=== PATIENT | male | born 1985 | race Caucasian/White ===

== ENCOUNTER → 2021-10-30 | Outpatient (CLI) | payer MEDICAID | LOC: M OUTALCOH 07:48 | PROVIDERS: ATTEND Psychiatry & Neurology Psychiatry | DX: Z03.89 Encounter for observation for other suspected diseases and conditions ruled out (principal) ==

== ENCOUNTER 2021-11-27 14:00 | Outpatient (RCR) | payer SELFPAY | END 2021-11-29 | LOC: M OUTALCOH 14:00 | PROVIDERS: ATTEND Psychiatry & Neurology Psychiatry | DX: F10.20 Alcohol dependence, uncomplicated (principal); F12.10 Cannabis abuse, uncomplicated; F17.200 Nicotine dependence, unspecified, uncomplicated ==

== ENCOUNTER → 2021-12-30 | Outpatient (RCR) | payer SELFPAY | LOC: M OUTALCOH 12-04 13:57 | PROVIDERS: ATTEND Psychiatry & Neurology Psychiatry | DX: F10.20 Alcohol dependence, uncomplicated (principal); F12.10 Cannabis abuse, uncomplicated; F17.200 Nicotine dependence, unspecified, uncomplicated ==

== ENCOUNTER → 2022-01-29 | Outpatient (RCR) | payer SELFPAY | LOC: M OUTALCOH 01-07 15:27 | PROVIDERS: ATTEND Psychiatry & Neurology Psychiatry | DX: F10.20 Alcohol dependence, uncomplicated (principal); F12.10 Cannabis abuse, uncomplicated; F17.200 Nicotine dependence, unspecified, uncomplicated ==

== ENCOUNTER 2022-02-26 08:49 | Outpatient (RCR) | payer SELFPAY | END 2022-03-01 | LOC: M OUTALCOH 08:49 | PROVIDERS: ATTEND Psychiatry & Neurology Psychiatry | DX: F10.20 Alcohol dependence, uncomplicated (principal); F12.10 Cannabis abuse, uncomplicated; F17.200 Nicotine dependence, unspecified, uncomplicated ==

== ENCOUNTER 2022-03-26 09:49 | Outpatient (RCR) | payer SELFPAY | END 2022-04-01 | LOC: M OUTALCOH 09:49 | PROVIDERS: ATTEND Psychiatry & Neurology Psychiatry | DX: F10.20 Alcohol dependence, uncomplicated (principal); F12.10 Cannabis abuse, uncomplicated; F17.200 Nicotine dependence, unspecified, uncomplicated ==

== ENCOUNTER 2022-04-23 10:00 | Outpatient (RCR) | payer OTHER | END 2022-05-01 | LOC: M OUTALCOH 10:00 | PROVIDERS: ATTEND Psychiatry & Neurology Psychiatry | DX: F10.20 Alcohol dependence, uncomplicated (principal); F12.10 Cannabis abuse, uncomplicated; F17.200 Nicotine dependence, unspecified, uncomplicated ==

== ENCOUNTER 2024-11-13 09:37 | Inpatient (IN) | payer MEDICAID, OTHER, SELFPAY ==
[2024-11-13] VITALS (10 sets, daily range): BP systolic 112–160; BP diastolic 59–80; TEMP 97–102.3; O2SAT 96–99
[~2024-11-13] VITALS: Ht 172.7 cm; Wt 62.5 kg
[2024-11-13] MEDS ORDERED: CIPR500T39 PO (09:49)
[2024-11-13 10:09] LABS: KETONE, URINE AUTO RFX NEGATIVE (NEGATIVE); MUCUS, URINE RFX SMALL (NEGATIVE); NITRITE, URINE AUTO RFX NEGATIVE (NEGATIVE); RBC, URINE AUTO RFX 3 /HPF (0-3); SQUAM EPITHELIAL CELL UR AURFX 0 /HPF (0-6)
[2024-11-13 10:10] LABS: LEUKOCYTE ESTERASE UR AUTO RFX 2+ (NEGATIVE); WBC, URINE AUTO RFX 145 /HPF (0-3)
[2024-11-13 10:41] LABS: BASO # 0.1 10^3/uL (0.0-0.2); BASO % 0.2 % (0.0-1.0); EOS # 0.1 10^3/uL (0.0-0.5); EOS % 0.2 % (0.0-3.0); HEMATOCRIT 27.1 % (42.0-52.0); HEMOGLOBIN 8.8 g/dl (13.5-17.5); LYMPH # 1.5 10^3/uL (1.5-5.0); LYMPH % 5.2 % (24.0-44.0); MEAN CORPUSCULAR HEMOGLOBIN 29.2 pg (27.0-33.0); MEAN CORPUSCULAR HGB CONC 32.5 g/dl (32.0-36.5); MONO # 1.7 10^3/uL (0.0-0.8); MONO % 5.8 % (2.0-8.0); NEUTROPHILS # 25.2 10^3/uL (1.5-8.5); NEUTROPHILS % 87.8 % (36.0-66.0); PLATELET COUNT, AUTOMATED 696 10^3/uL (150-450); RED BLOOD COUNT 3.01 10^6/uL (4.30-6.10); WHITE BLOOD COUNT 28.7 10^3/uL (4.0-10.0)
[2024-11-13 11:03] LABS: BLOOD UREA NITROGEN 16 MG/DL (9-23); CALCIUM LEVEL 8.1 MG/DL (8.5-10.1); CARBON DIOXIDE LEVEL 28 MMOL/L (20-31); CHLORIDE LEVEL 97 MMOL/L (98-107); CREATININE FOR GFR 1.48 MG/DL (0.70-1.30); GLOMERULAR FILTRATION RATE 61.7 (>60); GLUCOSE, FASTING 117 MG/DL (60-100); POTASSIUM SERUM 4.4 MMOL/L (3.5-5.1); SODIUM LEVEL 132 MMOL/L (136-145)
[2024-11-13] MEDS: NS (Normal Saline) 0.9% 1,000 ML IV ONE ×2 (12:40→12:49)
[2024-11-13] MEDS: cefTRIAXone SOD 2 GM in DEXTROSE 5% (D5W) ADV/MINI-BAG 50 ML IV ONE (12:54)
[2024-11-13] MEDS: KETOROLAC 30 MG/ML 1ML VIAL IV ONE (12:54)
[2024-11-13] MEDS ORDERED: MORPHINE 4 MG/ML 1ML VIAL IV PRN (14:15)
[2024-11-13] MEDS ORDERED: GLUCAGON INJ 1MG VIAL SC PRN (14:30)
[2024-11-13] MEDS ORDERED: GLUCOSE 4 GM CHEW PO PRN (14:30)
[2024-11-13] MEDS ORDERED: DEXTROSE 50% 50ML SYRINGE IV PRN (14:30)
[2024-11-13 14:45] LABS: LIPASE 18 U/L (12-53)
[2024-11-13 14:47] LABS: ALBUMIN 1.9 G/DL (3.2-5.2); ALKALINE PHOSPHATASE 55 U/L (40-129); ALT/SGPT 18 U/L (7.0-40); AST/SGOT 21 U/L (<34); BILIRUBIN,DIRECT 0.2 MG/DL (<0.4); BILIRUBIN,TOTAL 0.5 MG/DL (0.3-1.2); TOTAL PROTEIN 6.5 G/DL (5.7-8.2)
[2024-11-13] MEDS ORDERED: ONDANSETRON 4MG 2ML VIAL IV PRN ×2 (15:35→21:05)
[2024-11-13] MEDS: NS (Normal Saline) 0.9% 1,000 ML IV SCH (15:54)
[2024-11-13] MEDS: LIDOCAINE 1% MDV 20ML VIAL SC ONE (16:34)
[2024-11-13] MEDS ORDERED: HOME MED LIST COMPLETE! XX SCH (16:40)
[2024-11-13 17:50] LABS: INR 1.15
[2024-11-13] MEDS: PIPERACILLIN/TAZOBACTAM SOD 3.375 GM in DEXTROSE 5% (D5W) ADV/MINI-BAG 50 ML IV SCH (19:19)
[2024-11-13] MEDS ORDERED: LIDOCAINE 2% 100MG/5ML SDV (FOR ANES.) As Ordered ONE (20:15)
[2024-11-13] MEDS ORDERED: fentaNYL 100 MCG/2 ML INJECTION As Ordered ONE (20:15)
[2024-11-13] MEDS ORDERED: ONDANSETRON 4MG 2ML VIAL As Ordered ONE (20:15)
[2024-11-13] MEDS ORDERED: propofoL 200 MG/20 ML VIAL As Ordered ONE (20:15)
[2024-11-13] MEDS ORDERED: MIDAZOLAM INJ 2MG/2ML VIAL As Ordered ONE (20:15)
[2024-11-13] MEDS: NICOTINE 7 MG/24 HR TRANSDERMAL TD SCH (21:00)
[2024-11-13] MEDS ORDERED: MORPHINE 2 MG/ML 1ML VIAL IV PRN (21:05)
[2024-11-13] MEDS ORDERED: fentaNYL 100 MCG/2 ML INJECTION IV PRN (21:05)
[2024-11-13] MEDS ORDERED: oxyCODONE 5MG TAB PO PRN (21:05)
[2024-11-13] MEDS: oxyBUTYnin 5 MG TAB PO SCH (22:41)
[2024-11-13] MEDS: ACETAMINOPHEN 325 MG TAB PO PRN (23:22)
[2024-11-14] VITALS (11 sets, daily range): BP systolic 111–132; BP diastolic 67–81; TEMP 97.2–98.3; O2SAT 98–100
[2024-11-14 06:15] LABS: BASO # 0.1 10^3/uL (0.0-0.2); BASO % 0.2 % (0.0-1.0); HEMATOCRIT 28.1 % (42.0-52.0); HEMOGLOBIN 8.9 g/dl (13.5-17.5); LYMPH % 3.9 % (24.0-44.0); MEAN CORPUSCULAR HEMOGLOBIN 29.5 pg (27.0-33.0); MEAN CORPUSCULAR HGB CONC 31.7 g/dl (32.0-36.5); MONO # 0.5 10^3/uL (0.0-0.8); MONO % 1.9 % (2.0-8.0); NEUTROPHILS # 23.2 10^3/uL (1.5-8.5); NEUTROPHILS % 93.3 % (36.0-66.0); PLATELET COUNT, AUTOMATED 703 10^3/uL (150-450); RED BLOOD COUNT 3.02 10^6/uL (4.30-6.10); WHITE BLOOD COUNT 24.9 10^3/uL (4.0-10.0)
[2024-11-14] MEDS ORDERED: ISOVUE-370 76% 100ML VIAL As Ordered ONE (06:16)
[2024-11-14 06:38] LABS: BLOOD UREA NITROGEN 17 MG/DL (9-23); CALCIUM LEVEL 8.2 MG/DL (8.5-10.1); CARBON DIOXIDE LEVEL 27 MMOL/L (20-31); CHLORIDE LEVEL 98 MMOL/L (98-107); CREATININE FOR GFR 1.33 MG/DL (0.70-1.30); GLOMERULAR FILTRATION RATE 70.2 (>60); GLUCOSE, FASTING 189 MG/DL (60-100); POTASSIUM SERUM 4.2 MMOL/L (3.5-5.1); SODIUM LEVEL 135 MMOL/L (136-145)
[2024-11-14] MEDS: ISOVUE-300 61% 100ML VIAL IV SCH (11:00)
[2024-11-14] MEDS ORDERED: fentaNYL 100 MCG/2 ML INJECTION IV PRN (11:00)
[2024-11-14] MEDS ORDERED: MIDAZOLAM INJ 2MG/2ML VIAL IV PRN (11:00)
[2024-11-14] MEDS ORDERED: NS (Normal Saline) 0.9% 1,000 ML IV SCH (11:00)
[2024-11-14] MEDS: LIDOCAINE 1% MDV 20ML VIAL SC SCH (11:00)
[2024-11-14] MEDS: SODIUM CHLORIDE 0.9% 1000 ML XX SCH (11:00)
[2024-11-14] MEDS: ACETAMINOPHEN 325 MG TAB PO PRN (13:28)
[2024-11-14 14:31] LABS: HIV 1&2 SCREEN NEGATIVE (NEGATIVE)
[2024-11-14] MEDS: MORPHINE 2 MG/ML 1ML VIAL IV PRN (17:46)
[2024-11-15 03:38] VITALS: BP 119/79; TEMP 98.2; O2SAT 100
[2024-11-15 05:51] LABS: BASO % 0.3 % (0.0-1.0); EOS # 0.1 10^3/uL (0.0-0.5); EOS % 0.7 % (0.0-3.0); HEMATOCRIT 24.9 % (42.0-52.0); LYMPH # 2.2 10^3/uL (1.5-5.0); LYMPH % 14.2 % (24.0-44.0); MEAN CORPUSCULAR HGB CONC 32.1 g/dl (32.0-36.5); MEAN CORPUSCULAR VOLUME 90.2 fl (80.0-96.0); MONO # 0.6 10^3/uL (0.0-0.8); MONO % 4.2 % (2.0-8.0); NEUTROPHILS # 12.2 10^3/uL (1.5-8.5); PLATELET COUNT, AUTOMATED 673 10^3/uL (150-450); RED BLOOD COUNT 2.76 10^6/uL (4.30-6.10); WHITE BLOOD COUNT 15.3 10^3/uL (4.0-10.0)
[2024-11-15 06:18] LABS: CALCIUM LEVEL 7.4 MG/DL (8.5-10.1); CREATININE FOR GFR 1.36 MG/DL (0.70-1.30); GLOMERULAR FILTRATION RATE 68.3 (>60); POTASSIUM SERUM 4.1 MMOL/L (3.5-5.1)
[2024-11-15 07:35] VITALS: BP 137/65; TEMP 98; O2SAT 100
[2024-11-15 09:05] LABS: PROCALCITONIN 0.94 ng/ml
[2024-11-15 12:00] VITALS: BP 126/64; TEMP 97.6; O2SAT 96
[2024-11-15 16:00] VITALS: BP 118/58; TEMP 97.6; O2SAT 100
[2024-11-15] MEDS: SODIUM CHLORIDE 0.9% INJ 10 ML SYR XX SCH (17:20)
[2024-11-15 20:10] VITALS: BP 133/80; TEMP 99.1; O2SAT 99
[2024-11-16] VITALS (7 sets, daily range): BP systolic 126–143; BP diastolic 76–86; TEMP 97.4–99.4; O2SAT 99–100
[2024-11-16 06:19] LABS: BASO % 0.3 % (0.0-1.0); EOS # 0.2 10^3/uL (0.0-0.5); EOS % 1.9 % (0.0-3.0); HEMATOCRIT 26.3 % (42.0-52.0); HEMOGLOBIN 8.6 g/dl (13.5-17.5); LYMPH # 1.9 10^3/uL (1.5-5.0); LYMPH % 15.7 % (24.0-44.0); MEAN CORPUSCULAR HEMOGLOBIN 29.6 pg (27.0-33.0); MEAN CORPUSCULAR HGB CONC 32.7 g/dl (32.0-36.5); MEAN CORPUSCULAR VOLUME 90.4 fl (80.0-96.0); MONO # 0.7 10^3/uL (0.0-0.8); MONO % 5.7 % (2.0-8.0); NEUTROPHILS % 75.8 % (36.0-66.0); PLATELET COUNT, AUTOMATED 746 10^3/uL (150-450); RED BLOOD COUNT 2.91 10^6/uL (4.30-6.10); WHITE BLOOD COUNT 11.8 10^3/uL (4.0-10.0)
[2024-11-16 06:39] LABS: CREATININE FOR GFR 1.47 MG/DL (0.70-1.30); GLOMERULAR FILTRATION RATE 62.2 (>60); POTASSIUM SERUM 4.4 MMOL/L (3.5-5.1)
[2024-11-16 13:26] LABS: C REACTIVE PROTEIN QUANTITATIV 7.8 MG/DL (<1.0)
[2024-11-16 14:04] LABS: FERRITIN 276.5 NG/ML (10.5-307.3); FOLATE 9.92 NG/ML (>5.4)
[2024-11-16 14:29] LABS: PERCENT SATURATION 12.6 % (19.7-50.0)
[2024-11-16 18:58] LABS: HEPATITIS B SURFACE ANTIBODY POSITIVE (POSITIVE)
[2024-11-16 19:32] LABS: HEPATITIS C VIRUS ABY INDEX 0.07 INDEX (<0.8)
[2024-11-16 19:41] LABS: HEPATITIS B SURFACE ANTIGEN NEGATIVE (NEGATIVE)
[2024-11-17] VITALS (7 sets, daily range): BP systolic 135–153; BP diastolic 78–97; TEMP 97.6–98.7; O2SAT 98–100
[2024-11-17 04:16] LABS: BASO # 0.1 10^3/uL (0.0-0.2); BASO % 0.5 % (0.0-1.0); EOS # 0.4 10^3/uL (0.0-0.5); EOS % 2.9 % (0.0-3.0); HEMATOCRIT 26.2 % (42.0-52.0); HEMOGLOBIN 8.5 g/dl (13.5-17.5); MEAN CORPUSCULAR HEMOGLOBIN 29.7 pg (27.0-33.0); MEAN CORPUSCULAR HGB CONC 32.4 g/dl (32.0-36.5); MEAN CORPUSCULAR VOLUME 91.6 fl (80.0-96.0); MONO # 0.8 10^3/uL (0.0-0.8); MONO % 5.7 % (2.0-8.0); NEUTROPHILS % 75.4 % (36.0-66.0); PLATELET COUNT, AUTOMATED 786 10^3/uL (150-450); RED BLOOD COUNT 2.86 10^6/uL (4.30-6.10); WHITE BLOOD COUNT 13.2 10^3/uL (4.0-10.0)
[2024-11-17 04:40] LABS: CALCIUM LEVEL 7.9 MG/DL (8.5-10.1); CREATININE FOR GFR 1.41 MG/DL (0.70-1.30); GLOMERULAR FILTRATION RATE 65.4 (>60); POTASSIUM SERUM 4.2 MMOL/L (3.5-5.1)
[2024-11-17] MEDS: CETACAINE SPRAY 5GM As Ordered ONE (18:00)
[2024-11-18] VITALS (7 sets, daily range): BP systolic 138–158; BP diastolic 82–98; TEMP 97.5–98.2; O2SAT 98–100
[2024-11-18 05:52] LABS: BASO # 0.1 10^3/uL (0.0-0.2); BASO % 0.5 % (0.0-1.0); EOS # 0.5 10^3/uL (0.0-0.5); EOS % 3.7 % (0.0-3.0); HEMATOCRIT 25.2 % (42.0-52.0); HEMOGLOBIN 8.1 g/dl (13.5-17.5); LYMPH % 14.9 % (24.0-44.0); MEAN CORPUSCULAR HEMOGLOBIN 28.7 pg (27.0-33.0); MEAN CORPUSCULAR HGB CONC 32.1 g/dl (32.0-36.5); MEAN CORPUSCULAR VOLUME 89.4 fl (80.0-96.0); MONO # 0.6 10^3/uL (0.0-0.8); MONO % 4.4 % (2.0-8.0); NEUTROPHILS # 10.1 10^3/uL (1.5-8.5); NEUTROPHILS % 75.7 % (36.0-66.0); PLATELET COUNT, AUTOMATED 763 10^3/uL (150-450); RED BLOOD COUNT 2.82 10^6/uL (4.30-6.10); WHITE BLOOD COUNT 13.3 10^3/uL (4.0-10.0)
[2024-11-18 06:19] LABS: CALCIUM LEVEL 8.8 MG/DL (8.5-10.1); CREATININE FOR GFR 1.53 MG/DL (0.70-1.30); GLOMERULAR FILTRATION RATE 59.3 (>60); POTASSIUM SERUM 4.2 MMOL/L (3.5-5.1)
[2024-11-19 03:27] VITALS: BP 156/90; TEMP 98.9; O2SAT 99
[2024-11-19 06:04] LABS: BASO # 0.1 10^3/uL (0.0-0.2); BASO % 0.9 % (0.0-1.0); EOS # 0.5 10^3/uL (0.0-0.5); EOS % 4.7 % (0.0-3.0); HEMATOCRIT 25.8 % (42.0-52.0); HEMOGLOBIN 8.4 g/dl (13.5-17.5); LYMPH # 1.8 10^3/uL (1.5-5.0); LYMPH % 17.5 % (24.0-44.0); MEAN CORPUSCULAR HEMOGLOBIN 29.7 pg (27.0-33.0); MEAN CORPUSCULAR HGB CONC 32.6 g/dl (32.0-36.5); MEAN CORPUSCULAR VOLUME 91.2 fl (80.0-96.0); MONO # 0.6 10^3/uL (0.0-0.8); MONO % 5.8 % (2.0-8.0); NEUTROPHILS # 7.4 10^3/uL (1.5-8.5); NEUTROPHILS % 70.7 % (36.0-66.0); PLATELET COUNT, AUTOMATED 789 10^3/uL (150-450); RED BLOOD COUNT 2.83 10^6/uL (4.30-6.10); WHITE BLOOD COUNT 10.5 10^3/uL (4.0-10.0)
[2024-11-19 06:22] LABS: CALCIUM LEVEL 8.3 MG/DL (8.5-10.1); CREATININE FOR GFR 1.74 MG/DL (0.70-1.30); GLOMERULAR FILTRATION RATE 50.8 (>60); POTASSIUM SERUM 4.2 MMOL/L (3.5-5.1)
[2024-11-19 07:31] VITALS: BP 159/91; TEMP 97.5; O2SAT 97
[2024-11-19 12:04] VITALS: BP 147/80; TEMP 98.4; O2SAT 98
[2024-11-19 16:02] VITALS: BP 142/90; TEMP 98.5; O2SAT 99
[2024-11-19 19:04] VITALS: BP 133/76; TEMP 98; O2SAT 100
[2024-11-20 04:00] VITALS: BP 136/82; TEMP 99.9; O2SAT 98
[2024-11-20 05:37] LABS: BASO # 0.1 10^3/uL (0.0-0.2); BASO % 0.8 % (0.0-1.0); EOS # 0.5 10^3/uL (0.0-0.5); HEMATOCRIT 27.1 % (42.0-52.0); HEMOGLOBIN 8.8 g/dl (13.5-17.5); LYMPH # 2.1 10^3/uL (1.5-5.0); LYMPH % 19.1 % (24.0-44.0); MEAN CORPUSCULAR HGB CONC 32.5 g/dl (32.0-36.5); MEAN CORPUSCULAR VOLUME 92.5 fl (80.0-96.0); MONO # 0.6 10^3/uL (0.0-0.8); MONO % 5.5 % (2.0-8.0); NEUTROPHILS # 7.5 10^3/uL (1.5-8.5); NEUTROPHILS % 69.2 % (36.0-66.0); PLATELET COUNT, AUTOMATED 805 10^3/uL (150-450); RED BLOOD COUNT 2.93 10^6/uL (4.30-6.10); WHITE BLOOD COUNT 10.8 10^3/uL (4.0-10.0)
[2024-11-20 05:57] LABS: CALCIUM LEVEL 8.9 MG/DL (8.5-10.1); CREATININE FOR GFR 1.77 MG/DL (0.70-1.30); GLOMERULAR FILTRATION RATE 49.8 (>60); POTASSIUM SERUM 4.7 MMOL/L (3.5-5.1)
[2024-11-20 08:10] VITALS: BP 150/98; TEMP 99.9; O2SAT 98
[2024-11-20 11:01] LABS: C REACTIVE PROTEIN QUANTITATIV 2.02 MG/DL (<1.0)
[2024-11-20 11:13] LABS: PROCALCITONIN 0.19 ng/ml
[2024-11-20 11:44] VITALS: BP 150/98; TEMP 99.3; O2SAT 99
[2024-11-20 12:26] VITALS: BP 139/87; TEMP 97; O2SAT 100
[2024-11-20] MEDS: metroNIDAZOLE (FLAGYL) 500MG TABLET PO SCH (18:17)
[2024-11-20 20:29] VITALS: BP 152/81; TEMP 98; O2SAT 99
[2024-11-20] MEDS: LevoFLOXacin 750 MG TABLET PO SCH (21:49)
[2024-11-21 03:58] VITALS: BP 132/88; TEMP 97.4; O2SAT 100
[2024-11-21 05:53] LABS: HEMATOCRIT 26.4 % (42.0-52.0); HEMOGLOBIN 8.4 g/dl (13.5-17.5); MEAN CORPUSCULAR HEMOGLOBIN 29.2 pg (27.0-33.0); MEAN CORPUSCULAR HGB CONC 31.8 g/dl (32.0-36.5); MEAN CORPUSCULAR VOLUME 91.7 fl (80.0-96.0); PLATELET COUNT, AUTOMATED 753 10^3/uL (150-450); RED BLOOD COUNT 2.88 10^6/uL (4.30-6.10); WHITE BLOOD COUNT 8.6 10^3/uL (4.0-10.0)
[2024-11-21 06:19] LABS: ALBUMIN 2.3 G/DL (3.2-5.2); CALCIUM LEVEL 9.1 MG/DL (8.5-10.1); CREATININE FOR GFR 1.78 MG/DL (0.70-1.30); GLOMERULAR FILTRATION RATE 49.5 (>60); MAGNESIUM LEVEL 2.2 MG/DL (1.8-2.4); PHOSPHORUS LEVEL 4.7 MG/DL (2.5-4.9); POTASSIUM SERUM 4.5 MMOL/L (3.5-5.1)
[2024-11-21 07:27] VITALS: BP 139/81; TEMP 97.9; O2SAT 95
[2024-11-21] MEDS ORDERED: LEVO75TAB PO (07:27)
[2024-11-21] MEDS ORDERED: METR-265 PO (07:27)
[2024-11-21 07:35] LABS: ANISOCYTOSIS 1+; ATYPICAL LYMPH 2 % (0-5); EOSINOPHILS 3 % (0-3); LYMPHOCYTES 27 % (16-44); MONOCYTES 2 % (0-5); NEUTROPHILS 66 % (28-66)
[2024-11-21 07:36] LABS: PLATELET ESTIMATE INCREASED (NORMAL)
== END 2024-11-21 14:04 | disposition home or self-care (01) | DRG 710 ==
LOC: M ED 09:37 → M ED INP 09:38 → M ED 14:37 → OBSVTOIN 14:44 → M PCU 17:03
PROVIDERS: ADMIT Internal Medicine; ATTEND Internal Medicine
PROC: 0W9H30Z Drainage of Retroperitoneum with Drainage Device, Percutaneous Approach (ICD-10-PCS; 2024-11-13)
PROC: 0T9780Z Drainage of Left Ureter with Drainage Device, Via Natural or Artificial Opening Endoscopic (ICD-10-PCS; 2024-11-13)
PROC: 0T778DZ Dilation of Left Ureter with Intraluminal Device, Via Natural or Artificial Opening Endoscopic (ICD-10-PCS; principal; 2024-11-13 16:00)
PROC: 0W9J30Z Drainage of Pelvic Cavity with Drainage Device, Percutaneous Approach (ICD-10-PCS; 2024-11-14)
PROC: B246ZZZ Ultrasonography of Right and Left Heart (ICD-10-PCS; 2024-11-17)
DX: A41.9 Sepsis, unspecified organism (principal); N15.1 Renal and perinephric abscess; N17.9 Acute kidney failure, unspecified; K68.12 Psoas muscle abscess; D69.6 Thrombocytopenia, unspecified; E87.1 Hypo-osmolality and hyponatremia; N30.80 Other cystitis without hematuria; N32.1 Vesicointestinal fistula; N20.1 Calculus of ureter; F17.210 Nicotine dependence, cigarettes, uncomplicated; N13.9 Obstructive and reflux uropathy, unspecified; D64.9 Anemia, unspecified; N12 Tubulo-interstitial nephritis, not specified as acute or chronic; N18.2 Chronic kidney disease, stage 2 (mild); I34.0 Nonrheumatic mitral (valve) insufficiency

== ENCOUNTER → 2024-12-06 | Outpatient (REF) | payer MEDICAID, OTHER ==
[~2024-12-06] MED LIST: CIPR500T39 PO; LEVO75TAB PO; METR-265 PO
== END ==
LOC: M SMT 13:25
PROVIDERS: ATTEND Urology
DX: N30.80 Other cystitis without hematuria (principal)

== ENCOUNTER → 2024-12-18 | Outpatient (CLI) | payer OTHER ==
[2024-12-18 12:56] LABS: BASO # 0.1 10^3/uL (0.0-0.2); EOS # 0.6 10^3/uL (0.0-0.5); EOS % 6.6 % (0.0-3.0); HEMATOCRIT 33.2 % (42.0-52.0); HEMOGLOBIN 10.9 g/dl (13.5-17.5); LYMPH # 2.1 10^3/uL (1.5-5.0); LYMPH % 24.4 % (24.0-44.0); MEAN CORPUSCULAR HEMOGLOBIN 30.2 pg (27.0-33.0); MEAN CORPUSCULAR HGB CONC 32.8 g/dl (32.0-36.5); MONO # 0.9 10^3/uL (0.0-0.8); MONO % 10.7 % (2.0-8.0); NEUTROPHILS # 4.8 10^3/uL (1.5-8.5); NEUTROPHILS % 57.1 % (36.0-66.0); PLATELET COUNT, AUTOMATED 356 10^3/uL (150-450); RED BLOOD COUNT 3.61 10^6/uL (4.30-6.10); WHITE BLOOD COUNT 8.4 10^3/uL (4.0-10.0)
[2024-12-18 12:57] LABS: APPEARANCE, URINE CLOUDY (CLEAR); BACTERIA, URINE AUTO NEGATIVE (NEGATIVE); BILIRUBIN, URINE AUTO NEGATIVE (NEGATIVE); BLOOD, URINE BLOOD 2+ (NEGATIVE); CALCIUM OXALATE CRYSTALS SMALL; COLOR, URINE YELLOW (YELLOW); GLUCOSE, URINE (UA) AUTO NEGATIVE (NEGATIVE); KETONE, URINE AUTO NEGATIVE (NEGATIVE); LEUKOCYTE ESTERASE, URINE AUTO 3+ (NEGATIVE); NITRITE, URINE AUTO NEGATIVE (NEGATIVE); PROTEIN, URINE AUTO 1+ mg/dL (NEGATIVE); RBC, URINE AUTO 29 /HPF (0-3); SPECIFIC GRAVITY URINE AUTO 1.014 (1.002-1.035); SQUAMOUS EPITHELIAL CELL UR AU 0 /HPF (0-6); UROBILINOGEN, URINE AUTO 0.2 mg/dL (0.0-2.0); WBC, URINE AUTO TNTC /HPF (0-3)
[2024-12-18 12:59] LABS: C REACTIVE PROTEIN QUANTITATIV < 0.50 MG/DL (<1.0); INR 1.13; PROTHROMBIN TIME 14.8 SECONDS (12.5-14.5)
[2024-12-18 13:00] LABS: ALBUMIN 3.2 G/DL (3.2-5.2); ALKALINE PHOSPHATASE 33 U/L (40-129); ALT/SGPT 29 U/L (7.0-40); AST/SGOT 52 U/L (<34); BILIRUBIN,TOTAL 0.8 MG/DL (0.3-1.2); BLOOD UREA NITROGEN 18 MG/DL (9-23); CALCIUM LEVEL 9.5 MG/DL (8.5-10.1); CARBON DIOXIDE LEVEL 30 MMOL/L (20-31); CHLORIDE LEVEL 103 MMOL/L (98-107); CREATININE FOR GFR 1.83 MG/DL (0.70-1.30); GLOMERULAR FILTRATION RATE 47.8 (>60); GLUCOSE, FASTING 94 MG/DL (60-100); POTASSIUM SERUM 4.3 MMOL/L (3.5-5.1); SODIUM LEVEL 139 MMOL/L (136-145); TOTAL PROTEIN 6.6 G/DL (5.7-8.2)
[2024-12-18 13:10] LABS: ERYTHROCYTE SEDIMENTATION RATE 45 mm/hr (0-15)
== END ==
LOC: M PLALAB 10:10
PROVIDERS: ATTEND Internal Medicine Infectious Disease
DX: N15.1 Renal and perinephric abscess (principal)

== ENCOUNTER → 2024-12-20 | Outpatient (CLI) | payer OTHER ==
[~2024-12-20] MED LIST changes: +ISOVUE-370 76% 100ML VIAL As Ordered ONE
== END ==
LOC: M RAD 13:23
PROVIDERS: ATTEND Urology
DX: N20.2 Calculus of kidney with calculus of ureter (principal); N15.1 Renal and perinephric abscess; N28.1 Cyst of kidney, acquired
CPT/HCPCS: 74177; Q9967

== ENCOUNTER 2025-01-29 08:30 | Day surgery (SDC) | payer OTHER ==
[~2025-01-29] VITALS: Ht 172.7 cm; Wt 69.1 kg
[~2025-01-29 08:30] MED LIST changes: -ISOVUE-370 76% 100ML VIAL As Ordered ONE; +MULTTAB61 PO
[2025-01-29] MEDS ORDERED: LR 1,000 ML IV SCH (08:55)
[2025-01-29] MEDS ORDERED: MIDAZOLAM INJ 2 MG/2 ML VIAL As Ordered ONE (09:00)
[2025-01-29] MEDS ORDERED: fentaNYL 100 MCG/2 ML INJECTION As Ordered ONE (09:00)
[2025-01-29] MEDS ORDERED: propofoL 200 MG/20 ML VIAL As Ordered ONE (09:19)
[2025-01-29] MEDS: ISOVUE-300 61% 100 ML VIAL As Ordered ONE (09:20)
[2025-01-29] MEDS ORDERED: ACETAMINOPHEN 1000MG/100ML IV BAG As Ordered ONE (09:21)
[2025-01-29] MEDS ORDERED: ONDANSETRON 4MG 2ML VIAL As Ordered ONE (09:21)
[2025-01-29] MEDS ORDERED: dexAMETHasone 4 MG/ML 1 ML VIAL As Ordered ONE (09:21)
[2025-01-29] MEDS ORDERED: LIDOCAINE 2% 100 MG/5 ML SDV (FOR ANES.) As Ordered ONE (09:21)
[2025-01-29] MEDS: ceFAZolin SOD 2 GM IV ONCE IV ONE (09:33)
[2025-01-29] MEDS ORDERED: AMLO1TAB25 PO (09:35)
[2025-01-29] MEDS: ceFAZolin SODIUM 2 GM VIAL As Ordered ONE (09:36)
[2025-01-29] MEDS ORDERED: HYDROMORPHONE HCL 0.5 MG/0.5 ML SYRINGE IV PRN (10:40)
[2025-01-29] MEDS ORDERED: oxyCODONE 5MG TAB PO PRN (10:40)
[2025-01-29] MEDS ORDERED: fentaNYL 100 MCG/2 ML INJECTION IV PRN (10:40)
[2025-01-29] MEDS ORDERED: ONDANSETRON 4MG 2ML VIAL IV PRN (10:40)
[2025-01-29 11:35] VITALS: BP 165/105; TEMP 97.6; O2SAT 99
== END 2025-01-29 11:52 | disposition home or self-care (01) ==
LOC: M SDC 08:30
PROVIDERS: ATTEND Urology
DX: N20.1 Calculus of ureter (principal); N30.80 Other cystitis without hematuria; N40.0 Benign prostatic hyperplasia without lower urinary tract symptoms; N15.1 Renal and perinephric abscess; I10 Essential (primary) hypertension; Z79.899 Other long term (current) drug therapy; F17.210 Nicotine dependence, cigarettes, uncomplicated
CPT/HCPCS: 52356; 76000; 87070; 87075; 87076; 87077; 87186; 87205; 93005; C2617; J0131; J0690; J1100; J2250; J2405; J3010; Q9967

== ENCOUNTER → 2025-03-14 | Outpatient (CLI) | payer OTHER ==
[~2025-03-14] MED LIST changes: +AMLO1TAB25 PO; +ISOVUE-370 76% 100 ML VIAL ONE
== END ==
LOC: M PLAIMG 14:43
PROVIDERS: ATTEND Urology
DX: L02.91 Cutaneous abscess, unspecified (principal); N28.1 Cyst of kidney, acquired; K57.30 Diverticulosis of large intestine without perforation or abscess without bleeding; K35.80 Unspecified acute appendicitis
CPT/HCPCS: 74177; Q9967